=== PATIENT | male | born 1985 | race Hispanic/Latino ===

== ENCOUNTER 2021-01-06 08:17 | Emergency (ER) | payer SELFPAY ==
[~2021-01-06] VITALS: Ht 170.2 cm; Wt 75.0 kg
[2021-01-06] MEDS ORDERED: PREDNISONE50 MG PO (09:40)
[2021-01-06] MEDS ORDERED: ALL DAY10 MG PO (09:40)
[2021-01-06] MEDS ORDERED: EPIPEN 2-P0.3 MG/0.3 IM (09:40)
[2021-01-06 10:02] VITALS: BP 136/74
== END 2021-01-06 10:03 | disposition home or self-care (01) | DRG 918 ==
LOC: ED 08:17
DX: T63.441A Toxic effect of venom of bees, accidental (unintentional), initial encounter (principal)

== ENCOUNTER 2021-12-03 15:42 | Emergency (ER) | payer SELFPAY ==
[~2021-12-03] VITALS: Ht 160 cm; Wt 76.2 kg
[~2021-12-03 15:42] MED LIST: ALL DAY10 MG PO; EPIPEN 2-P0.3 MG/0.3 IM; PREDNISONE50 MG PO
[2021-12-03 17:12] LABS: HEMATOCRIT 43.4 % (39.0-50.0); HEMOGLOBIN 14.5 g/dl (14.0-18.0); IMMATURE GRANULOCYTES 0.4 % (0.0-5.0); MEAN CELL VOLUME 92.1 fL CALC (80.0-100.0); MEAN CORPUSCULAR HGB 30.8 pG CALC (26.0-32.0); MEAN CORPUSCULAR HGB CONC 33.4 g/dL CAL (32.0-36.0); NEUT# 3.87 thou/uL (1.82-7.42); RED BLOOD COUNT 4.71 mill/uL (4.70-6.10); RED CELL DISTRI WIDTH 11.9 % (11.5-15.5)
[2021-12-03 17:37] LABS: ALKALINE PHOSPHATASE 76 u/l (38-126); ANION GAP 12 (6-22 (CALC)); BILIRUBIN, TOTAL 0.7 mg/dL (0.0-1.4); BUN 11 mg/dL (9-20); BUN/CREATININE RATIO 14 (12-20 (CALC)); CARBON DIOXIDE 31 mmol/l (22-30); CHLORIDE 102 mmol/l (95-108); CREATININE 0.8 mg/dL (0.7-1.3); GFR FOR AFR.AMER. > 60 ML/MIN (>=60 (CALC)); GFR OTHER RACES > 60 ML/MIN (>=60 (CALC)); POTASSIUM 4.1 mmol/l (3.5-5.1); SGOT/AST 39 u/l (17-59); SODIUM 140 mmol/l (137-146); TOTAL PROTEIN 8.2 g/dL (6.3-8.2)
[2021-12-03] MEDS ORDERED: PREDNISONE20 MG PO (17:48)
[2021-12-03] MEDS ORDERED: ACYCLOVIR800 MG PO (17:48)
[2021-12-03 18:08] VITALS: BP 135/76
[2021-12-03] MEDS ORDERED: EPIPEN 2-P0.3 MG/0.3 IM (18:10)
== END 2021-12-03 18:23 | disposition home or self-care (01) | DRG 74 ==
LOC: ED 15:42
PROVIDERS: Internal Medicine
DX: G51.0 Bell's palsy (principal)

== ENCOUNTER 2022-06-20 15:48 | Emergency (ER) | payer SELFPAY ==
[~2022-06-20] VITALS: Ht 170.2 cm; Wt 76.0 kg
[2022-06-20] VITALS (11 sets, daily range): BP systolic 121–144; BP diastolic 67–84
[~2022-06-20 15:48] MED LIST changes: +ACYCLOVIR800 MG PO; +PREDNISONE20 MG PO
[2022-06-20 16:12] LABS: BASO% 0.2 % (0-3); EOS% 0.3 % (0-8); HEMATOCRIT 42.5 % (39.0-50.0); HEMOGLOBIN 14.9 g/dl (14.0-18.0); IMMATURE GRANULOCYTES 0.1 % (0.0-5.0); LYMPH% 9.5 % (15-41); MEAN CELL VOLUME 87.8 fL CALC (80.0-100.0); MEAN CORPUSCULAR HGB 30.8 pG CALC (26.0-32.0); MEAN CORPUSCULAR HGB CONC 35.1 g/dL CAL (32.0-36.0); MONO% 3.8 % (2-13); NEUT# 8.47 thou/uL (1.82-7.42); NEUT% 86.1 % (42-76); RED BLOOD COUNT 4.84 mill/uL (4.70-6.10); RED CELL DISTRI WIDTH 11.8 % (11.5-15.5)
[2022-06-20 16:25] LABS: ALBUMIN 5.6 g/dL (3.2-5.0); ALKALINE PHOSPHATASE 83 u/l (38-126); BILIRUBIN, TOTAL 0.8 mg/dL (0.2-1.3); BUN 8 mg/dL (9-20); BUN/CREATININE RATIO 11 (12-20 (CALC)); CHLORIDE 96 mmol/l (95-108); CREATININE 0.8 mg/dL (0.7-1.3); GFR FOR AFR.AMER. > 60 ML/MIN (>=60 (CALC)); GFR OTHER RACES > 60 ML/MIN (>=60 (CALC)); POTASSIUM 3.3 mmol/l (3.5-5.1); SGOT/AST 60 u/l (17-59); TOTAL PROTEIN 9.3 g/dL (6.3-8.2)
[2022-06-20 16:26] LABS: ANION GAP 15 (6-22 (CALC)); CARBON DIOXIDE 24 mmol/l (22-30); SODIUM 132 mmol/l (137-146)
[2022-06-20] MEDS ORDERED: ONDANSETRON4 MG PO (20:37)
[2022-06-20] MEDS ORDERED: MECLIZINE25 MG PO (20:37)
== END 2022-06-20 21:08 | disposition home or self-care (01) | DRG 149 ==
LOC: ED 15:48
PROVIDERS: Family Medicine
DX: R42 Dizziness and giddiness (principal)
CPT/HCPCS: Q9967